=== PATIENT | female | born 1950 | race Caucasian/White ===

== ENCOUNTER → 2016-11-05 | Outpatient (CLI) | payer OTHER ==
[~2016-11-05] MED LIST: ASPI325T39 PO; ATEN-173 PO; CHOL100010 PO; FLNIN NAE; FLUT0.15 NAE; METFTAB PO; PRAV20TA PO; PRVC/40 PO
--- NOTE | 2016-11-05 15:32 | MAMMOGRAPHY REPORT ---
BILATERAL DIGITAL SCREENING MAMMOGRAM WITH CAD: 11/05/2016 CLINICAL HISTORY: Routine screening. TECHNIQUE: Current study was also evaluated with a Computer Aided Detection (CAD) system. Bilateral CC and MLO and left XCCL views were obtained. COMPARISON: Comparison is made to exams dated: 11/04/2015 mammogram, 10/30/2014 mammogram, 10/03/2013 m ammogram, 09/27/2012 mammogram, 09/22/2011 mammogram, and 09/16/2010 mammogram - [facility] enter. BREAST COMPOSITION: The tissue of both breasts is almost entirely fatty. FINDINGS: No suspicious masses, calcifications, or areas of architectural distortion are noted in ei ther breast. There has been no significant interval change compared to prior exams. IMPRESSION: ACR BI-RADS CATEGORY 1: NEGATIVE There is no mammographic evidence of malignancy. A 1 year screening mammogram is recommended. The pa tient will receive written notification of the results. Approximately 10% of breast cancers are not detected with mammography. A negative mammographic report should not delay biopsy if a clinically suggestive mass is present. Shirlene Cabral M.D. ah/:11/05/2016 07:48:50 Numerical Control Lathe Operator: Jaylon Jones RT(R)(M), [facility] letter sent: Normal 1/2 BI-RADS Code: ACR BI-RADS Category 1: Negative
== END | disposition home or self-care (01) ==
LOC: C.MAMM 07:28
PROVIDERS: ATTEND Family Medicine
DX: Z12.31 Encounter for screening mammogram for malignant neoplasm of breast (principal)

== ENCOUNTER 2016-11-27 15:55 | Emergency (ER) | payer OTHER ==
[~2016-11-27] VITALS: Ht 160 cm; Wt 112.0 kg
[~2016-11-27 15:55] MED LIST changes: -FLUT0.15 NAE; -PRVC/40 PO
[2016-11-27 16:00] VITALS: Ht 160 cm; Wt 112.0 kg
--- NOTE | 2016-11-27 16:20 | EMERGENCY ROOM VISIT NOTE ---
History Report prepared by Emmanuel: Victoriano Gross Under the Supervision of: Dr. Mayte Mckeon D.O. First contact with patient: 16:04 Chief Complaint: BACK PAIN Stated Complaint: LOWER RIGHT BACK PAIN History of Present Illness The patient is a 65 year old female who presents to the Emergency Room with complaints of waxing and waning sharp lower right back pain starting this morning. The patient states that this morning she woke up normally, and when she was getting dressed she got a sharp pain in her back. She states that she went to breakfast, and it subsided and became dull. Then after lunch she had this pain come back again. She states that she then went to [facility], and they told her to come to the ED for evaluation. The patient states that she has had back pain before, though this is unlike her normal back pain. She states that she is nauseous, and the pain is wrapping around to her stomach. She states that standing upright helps with the pain. She additionally states that she has had UTI's in the past, though she has not had any recently. Pt denies leg pain, headache, change in vision, cough, fevers, chills, numbness , tingling, leg swelling, chest pain, shortness of breath, vomiting, diarrhea, pain with urination, melena, and any recent travels. Source of History: patient Onset: this morning Position: back (lower right) Quality: sharp Timing: waxes/wanes Associated Symptoms: + nausea, + abdominal pain Review of Systems See HPI for pertinent positives & negatives. A total of 10 systems reviewed and were otherwise negative. Past Medical & Surgical Medical Problems: (1) Benign hypertension (2) Bilateral tubal ligation (3) Gastroesophageal reflux disease (4) TUBAL LIGATION STATUS Family History Heart disease Hypertension Social History Smoking Status: Former Smoker Alcohol Use: none Marital Status: Occupation Status: employed Current/Historical Medications Scheduled Aspirin (Aspirin Ec), 1 TAB PO DAILY Atenolol (Tenormin), 25 MG PO QPM Metformin Ext Rel (Glucophage Ext Rel), 1,000 MG PO QPM Pravastatin Sod (Pravastatin Sodium), 40 MG PO DAILY Scheduled PRN Fluticasone Propionate (Nasal) (Flonase Allergy Relief), 2 SPRAYS ABDOULAYE DAILY PRN for congestion Allergies Coded Allergies: Penicillins (Verified Allergy, Mild, LOW BP, 11/27/16) Sulfa Drugs (Verified Allergy, Mild, SWELLS UP, 11/27/16) Cefadroxil (Verified Adverse Reaction, Unknown, GI SYMPTOMS, 11/27/16) Cefdinir (Verified Adverse Reaction, Unknown, GI SYMPTOMS, 11/27/16) Physical Exam Vital Signs Date Time Temp Pulse Resp B/P (MAP) Pulse Ox O2 Delivery O2 Flow Rate FiO2 11/27/16 18:07 36.6 62 18 150/85 97 Room Air NIBP 11/27/16 16:11 60 20 203/74 97 Room Air 11/27/16 16:00 36.6 59 17 96 Room Air Physical Exam GENERAL: alert, well appearing, well nourished, no distress, non-toxic EYE EXAM: normal conjunctiva, PERRL and EOM's grossly intact OROPHARYNX: no exudate, no erythema, lips, buccal mucosa, and tongue normal and mucous membranes are moist NECK: supple, no nuchal rigidity, no adenopathy, non-tender LUNGS: Clear to auscultation. Normal chest wall mechanics HEART: no murmurs, S1 normal and S2 normal ABDOMEN: abdomen soft, non-tender, normo-active bowel sounds, no masses, no rebound or guarding. BACK: Back is symmetrical on inspection and there is no deformity, no midline tenderness, no CVA tenderness. SKIN: no rashes and no bruising UPPER EXTREMITIES: upper extremities are grossly normal. LOWER EXTREMITIES: No pitting edema. NEURO EXAM: Normal sensorium, cranial nerves II-XII grossly intact, normal speech, no gross weakness of arms, no gross weakness of legs. Gross sensation intact. Medical Decision & Procedures ER Provider Diagnostic Interpretation: Radiology results have been interpreted by the radiologist and reviewed by me. ABDOMEN AND PELVIS CT WITHOUT CONTRAST CT DOSE: 1639.04 mGy.cm HISTORY: right low back pain TECHNIQUE: Multiaxial CT images of the abdomen and pelvis were performed without the use of intravenous and oral contrast according to the standard department stone protocol. A dose lowering technique was utilized adhering to the principles of ALARA. COMPARISON STUDY: None. FINDINGS: The lung bases are clear. No fractures within the visualized osseous structures. Tiny hiatus hernia. Mild hepatic steatosis. The unenhanced gallbladder, spleen, adrenal glands, and pancreas are unremarkable. No retroperitoneal lymphadenopathy. A 7 mm fat-containing lesion within the left side of the uterine fundus. This favors a small lipoleiomyoma. Suboptimal evaluation for bowel pathology due to the lack of intravenous and oral contrast. However, there is no definite bowel wall thickening or obstruction. There are a few scattered colonic diverticula. Normal appendix. There are suggestion of a punctate bladder stone. No bladder wall thickening. No renal or ureteral stones. No hydronephrosis. A 4.3 cm hypodense lesion within the lower pole of the right kidney. This is technically indeterminate on this noncontrast study but likely represents a cyst. IMPRESSION: 1. No renal or ureteral stones. No hydronephrosis. 2. Suspect a punctate bladder stone. 3. Hepatic steatosis. 4. Moderate diverticulosis. 5. Additional findings as described above. Electronically signed by: Jeronimo Arroyo M.D. 11/27/2016 5:28 PM Dictated Date/Time: 11/27/2016 5:20 PM Laboratory Results 11/27/16 16:30 Red Blood Count 4.76, Mean Corpuscular Volume 91.0, Mean Corpuscular Hemoglobin 29.0, Mean Corpuscular Hemoglobin Concent 31.9, Mean Platelet Volume 11.2, Neutrophils (%) (Auto) 70.0, Lymphocytes (%) (Auto) 20.3, Monocytes (%) (Auto) 7.2, Eosinophils (%) (Auto) 1.9, Basophils (%) (Auto) 0.3, Neutrophils # (Auto) 6.87, Lymphocytes # (Auto) 2.00, Monocytes # (Auto) 0.71, Eosinophils # (Auto) 0.19, Basophils # (Auto) 0.03 11/27/16 16:30 Test 11/27/16 16:30 White Blood Count 9.83 K/uL (4.8-10.8) Red Blood Count 4.76 M/uL (4.2-5.4) Hemoglobin 13.8 g/dL (12.0-16.0) Hematocrit 43.3 % (37-47) Mean Corpuscular Volume 91.0 fL (80-100) Mean Corpuscular Hemoglobin 29.0 pg (25-34) Mean Corpuscular Hemoglobin Concent 31.9 g/dl (32-36) Platelet Count 184 K/uL (130-400) Mean Platelet Volume 11.2 fL (7.4-10.4) Neutrophils (%) (Auto) 70.0 % Lymphocytes (%) (Auto) 20.3 % Monocytes (%) (Auto) 7.2 % Eosinophils (%) (Auto) 1.9 % Basophils (%) (Auto) 0.3 % Neutrophils # (Auto) 6.87 K/uL (1.4-6.5) Lymphocytes # (Auto) 2.00 K/uL (1.2-3.4) Monocytes # (Auto) 0.71 K/uL (0.11-0.59) Eosinophils # (Auto) 0.19 K/uL (0-0.5) Basophils # (Auto) 0.03 K/uL (0-0.2) RDW Standard Deviation 43.2 fL (36.4-46.3) RDW Coefficient of Variation 13.1 % (11.5-14.5) Immature Granulocyte % (Auto) 0.3 % Immature Granulocyte # (Auto) 0.03 K/uL (0.00-0.02) Anion Gap 9.0 mmol/L (3-11) Est Creatinine Clear Calc Drug Dose 68.4 ml/min Estimated GFR () 70.9 Estimated GFR (Non- 61.2 BUN/Creatinine Ratio 17.7 (10-20) Calcium Level 9.5 mg/dl (8.5-10.1) Laboratory results per my review. ED Course 1608: The patient was evaluated in room C10. A complete history and physical exam was performed. 1743: Upon reevaluation, the patient is feeling better. I discussed the findings and the treatment plan with the patient. She verbalizes agreement and understanding. She was discharged home. Medical Decision Differential diagnosis: Etiologies such as renal colic, appendicitis, diverticulitis, mesenteric ischemia, aortic pathology, infections, inflammatory bowel disease, PUD, biliary pathology, UTI, as well as others were entertained. Patient well-appearing here despite complaints, symptoms improved with medication. Discussed all results with patient's. Discussed adamantly noted on uterus and advised close follow-up with TAX REPRESENTATIVE as well. Labs otherwise reassuring, no evidence of infection. No evidence of ureteral stone, however possible recently passed stone given bladder stone noted on CT. Discussed with patient hydration, medications, symptoms to watch and return for , follow-up with family doctor, she verbalized understanding was agreeable with plan. Medication Reconcilliation Current Medication List: was personally reviewed by me Blood Pressure Screening Patient's blood pressure: Elevated blood pressure Blood pressure disposition: Elevated BP felt to be situational Impression Primary Impression: Low back pain Scribe Attestation The scribe's documentation has been prepared under my direction and personally reviewed by me in its entirety. I confirm that the note above accurately reflects all work, treatment, procedures, and medical decision making performed by me. Departure Information Dispostion Home / Self-Care Referrals Sylvester Perez M.D. (PCP) Forms HOME CARE DOCUMENTATION FORM, IMPORTANT VISIT INFORMATION Patient Instructions My [facility] Additional Instructions Please watch for any recurrent/worsening symptoms. You may try tylenol/ ibuprofen as directed on the bottle. Please drink plenty of water. Please avoid heavy lifting/strenuous activity until you are feeling better. If you have any other new or concerning symptoms, have worsening pain, fever/chills, vomiting, diarrhea, or you have any other new concerns, please return to the emergency room. Problem Qualifiers Primary Impression: Low back pain Chronicity: acute Back pain laterality: right Sciatica presence: without sciatica Qualified Codes: M54.5 - Low back pain
[2016-11-27 16:45] LABS: BASO % 0.3 %; BASO ABS # 0.03 K/uL (0-0.2); COMPLETE YES; EOS % 1.9 %; HEMATOCRIT 43.3 % (37-47); IG% 0.3 %; LYMPH % 20.3 %; MEAN CORPUSCULAR HGB CONC 31.9 g/dl (32-36); MEAN PLATELET VOLUME 11.2 fL (7.4-10.4); MONO % 7.2 %; PLATELET COUNT 184 K/uL (130-400); RED BLOOD COUNT 4.76 M/uL (4.2-5.4); WHITE BLOOD COUNT 9.83 K/uL (4.8-10.8)
[2016-11-27 17:14] LABS: BUN/CREATININE RATIO 17.7 (10-20); CALCIUM 9.5 mg/dl (8.5-10.1); CREATININE 0.96 mg/dl (0.60-1.20)
[2016-11-27] MEDS ORDERED: PRVC/40 PO (17:24)
[2016-11-27] MEDS ORDERED: FLUT0.15 NAE (17:24)
--- NOTE | 2016-11-27 17:29 | DIAGNOSTIC IMAGING REPORT ---
ABDOMEN AND PELVIS CT WITHOUT CONTRAST CT DOSE: 1639.04 mGy.cm HISTORY: right low back pain TECHNIQUE: Multiaxial CT images of the abdomen and pelvis were performed without the use of intravenous and oral contrast according to the standard department stone protocol. A dose lowering technique was utilized adhering to the principles of ALARA. COMPARISON STUDY: None. FINDINGS: The lung bases are clear. No fractures within the visualized osseous structures. Tiny hiatus hernia. Mild hepatic steatosis. The unenhanced gallbladder, spleen, adrenal glands, and pancreas are unremarkable. No retroperitoneal lymphadenopathy. A 7 mm fat-containing lesion within the left side of the uterine fundus. This favors a small lipoleiomyoma. Suboptimal evaluation for bowel pathology due to the lack of intravenous and oral contrast. However, there is no definite bowel wall thickening or obstruction. There are a few scattered colonic diverticula. Normal appendix. There are suggestion of a punctate bladder stone. No bladder wall thickening. No renal or ureteral stones. No hydronephrosis. A 4.3 cm hypodense lesion within the lower pole of the right kidney. This is technically indeterminate on this noncontrast study but likely represents a cyst. IMPRESSION: 1. No renal or ureteral stones. No hydronephrosis. 2. Suspect a punctate bladder stone. 3. Hepatic steatosis. 4. Moderate diverticulosis. 5. Additional findings as described above. Electronically signed by: Jeronimo Arroyo M.D. 11/27/2016 5:28 PM Dictated Date/Time: 11/27/2016 5:20 PM
[2016-11-27 18:07] VITALS: BP 150/85; PULSE 62; TEMP 36.6; O2SAT 97
== END 2016-11-27 18:07 | disposition home or self-care (01) ==
LOC: C.EDB 15:57 → C.EDC 18:07
DX: M54.5 Low back pain (principal); I10 Essential (primary) hypertension; K21.9 Gastro-esophageal reflux disease without esophagitis; Z98.51 Tubal ligation status; Z79.82 Long term (current) use of aspirin; Z79.84 Long term (current) use of oral hypoglycemic drugs; Z79.899 Other long term (current) drug therapy; Z87.891 Personal history of nicotine dependence; Z88.0 Allergy status to penicillin; Z88.2 Allergy status to sulfonamides; Z88.8 Allergy status to other drugs, medicaments and biological substances; Z82.49 Family history of ischemic heart disease and other diseases of the circulatory system

== ENCOUNTER → 2016-12-06 | Outpatient (CLI) | payer OTHER ==
[~2016-12-06] MED LIST changes: -CHOL100010 PO; -FLNIN NAE; +FLUT0.15 NAE; -PRAV20TA PO; +PRVC/40 PO
[2016-12-06 10:12] LABS: BLOOD UREA NITROGEN 18 mg/dl (7-18); BUN/CREATININE RATIO 21.7 (10-20); CARBON DIOXIDE 27 mmol/L (21-32); CHLORIDE 103 mmol/L (98-107); CREATININE 0.84 mg/dl (0.60-1.20); GLUCOSE 144 mg/dl (70-99); POTASSIUM 4.4 mmol/L (3.5-5.1); SODIUM 138 mmol/L (136-145)
[2016-12-06 10:15] LABS: CHOLESTEROL 172 mg/dl (0-200); CHOLESTEROL/HDL RATIO 4.3; HDL CHOLESTEROL 40 mg/dl; LDL CHOLESTEROL CALCULATED 95 mg/dl; TRIGLYCERIDES 185 mg/dl (0-150); VERY LOW DENSITY LIPOPROT CALC 37 mg/dl
== END | disposition home or self-care (01) ==
LOC: C.LAB 07:35
PROVIDERS: ATTEND Family Medicine
DX: Z13.1 Encounter for screening for diabetes mellitus (principal); Z13.220 Encounter for screening for lipoid disorders

== ENCOUNTER → 2017-01-13 | Outpatient (CLI) | payer OTHER | END | disposition home or self-care (01) | LOC: C.PATHSPEC 17:34 | PROVIDERS: ATTEND Dentist Oral and Maxillofacial Surgery | DX: K04.8 Radicular cyst (principal) ==

== ENCOUNTER 2017-05-22 11:38 | Emergency (ER) | payer OTHER ==
[~2017-05-22] VITALS: Ht 160 cm; Wt 106.6 kg
[2017-05-22 11:42] VITALS: TEMP 36.7; Ht 160 cm; Wt 106.6 kg
--- NOTE | 2017-05-22 12:04 | EMERGENCY ROOM VISIT NOTE ---
History Report prepared by Cherryibabhijit: aLura Irizarry Under the Supervision of: Dr. Yuri Jones M.D. First contact with patient: 11:48 Chief Complaint: URINARY SYMPTOMS Stated Complaint: BLOOD IN URINE Nursing Triage Summary: pt reports she has blood in her urine suddenly started at 1100 today denies any pain does not feel sick. 6 months ago thought to have kidney stone, never found History of Present Illness The patient is a 66 year old white female with a past medical history of GERD, hypertension and hyperlipidemia who presents to the ED with a cc of persistent hematuria beginning at 1100 this morning. Negative nausea, vomiting, diarrhea, back pain, abdominal pain, dysuria, pain or swelling in the legs, recent injuries, falls or trauma. The patient reports she was recently diagnosed with bursitis of the hip and got an injection from [facility]. She notes about 6 months ago she was treated by her PCP's office for urinary symptoms and was told she may have a kidney stone and to come to the ED. She had a CT scan but states they were unable to find a stone and she never passed one. Source of History: patient Onset: 1100 this morning Position: pelvis (urinary system) Quality: other (hematuria) Timing: other (persistent) Associated Symptoms: No nausea, No vomiting, No abdominal pain, No back pain , No diarrhea Review of Systems See HPI for pertinent positives and negatives. A total of ten systems were reviewed and were otherwise negative. Past Medical & Surgical Medical Problems: (1) Benign hypertension (2) Bilateral tubal ligation (3) Gastroesophageal reflux disease (4) TUBAL LIGATION STATUS Family History Heart disease Hypertension Social History Smoking Status: Never Smoker Alcohol Use: none Drug Use: none Marital Status: Housing Status: lives with family Occupation Status: employed Current/Historical Medications Scheduled Aspirin (Aspirin Ec), 1 TAB PO DAILY Atenolol (Tenormin), 25 MG PO QPM Cephalexin (Keflex), 1 CAP PO BID Metformin Ext Rel (Glucophage Ext Rel), 1,000 MG PO QPM Pantoprazole (Protonix), 20 MG PO DIRECTED Pravastatin Sod (Pravastatin Sodium), 40 MG PO DAILY Scheduled PRN Fluticasone Propionate (Nasal) (Flonase Allergy Relief), 2 SPRAYS ABDOULAYE DAILY PRN for congestion Allergies Coded Allergies: Penicillins (Verified Allergy, Mild, LOW BP, 11/27/16) Sulfa Drugs (Verified Allergy, Mild, SWELLS UP, 11/27/16) Pneumococcal Vaccine (Unverified Adverse Reaction, Mild, GI SYMPTOMS, 05/22) Cefadroxil (Verified Adverse Reaction, Unknown, GI SYMPTOMS, 11/27/16) Cefdinir (Verified Adverse Reaction, Unknown, GI SYMPTOMS, 11/27/16) Physical Exam Vital Signs Date Time Temp Pulse Resp B/P (MAP) Pulse Ox O2 Delivery O2 Flow Rate FiO2 05/22/17 12:58 55 20 150/90 97 Room Air 05/22/17 11:42 36.7 68 18 251/94 94 Room Air Physical Exam GENERAL: Awake, alert, well-appearing, NAD HENT: Normocephalic, atraumatic. EYES: Normal conjunctiva. Sclera non-icteric. NECK: Supple. No nuchal rigidity. FROM. RESPIRATORY: CTAB, no rhonchi, wheezing, crackles CARDIAC: RRR, no MRG ABDOMEN: Soft, NTND, no suprapubic TTP, BS+ MSK: No chest wall TTP, no CVA TTP, no LE edema NEURO: GCS 15, CN 2-12 intact, moves all 4s on command SKIN: No rash or jaundice noted. Medical Decision & Procedures ER Provider Diagnostic Interpretation: Radiology results as stated below per my review and radiologist interpretation: ABD/PELVIS WITHOUT FOR STONE HISTORY: 66 years-old Female hematuria, prior h/o stones acute hematuria with history of kidney stones. COMPARISON: CT 11/27/2016 TECHNIQUE: Multiple axial CT images of the abdomen and pelvis were obtained without IV contrast. A dose lowering technique was used consistent with the principals of ALARA. FINDINGS: Respiratory motion limits evaluation of the lung bases. There is minimal subsegmental bibasilar atelectasis. No pneumatosis or pneumoperitoneum identified. Calcifications of the aortic annulus are noted. Imaged inferior cardiac chambers are otherwise unremarkable. Hepatic steatosis. Gallbladder is mildly contracted. The spleen, pancreas and adrenal glands are within normal limits. Cyst of the inferior pole right kidney measures 4.2 x 3.8 cm, unchanged. No renal calculi or obstructive uropathy. Air is mild wall thickening of the urinary bladder with perivesicular stranding. Punctate calcification at the base of the urinary bladder is unchanged. Fatty attenuating 7 mm lesion of the left uterine fundus redemonstrated suggesting a uterine lipoleiomyoma, unchanged. Adnexa are within normal limits. Aorta is normal in course and caliber with mild atherosclerosis. No aneurysm. No bulky adenopathy identified. Small sliding-type hiatal hernia. No bowel obstruction or focal bowel wall thickening. Moderate stool volume of the colon. Mild colonic diverticulosis without diverticulitis. The appendix appears noninflamed. Soft tissues are unremarkable. The bones appear intact. Facet arthropathy is noted within the lower lumbar spine. IMPRESSION: 1. No renal calculi or obstructive uropathy. 2. Mild wall thickening of the urinary bladder with perivesicular stranding. Correlate with urinalysis to exclude cystitis. Punctate calcification is again seen at the base of the urinary bladder suggesting a bladder calculus, unchanged from comparison study 11/27/2016. 3. Hepatic steatosis. 4. Additional findings as above. The above report was generated using voice recognition software. It may contain grammatical, syntax or spelling errors. Electronically signed by: Gilson Westfall M.D. 05/22/2017 12:47 PM Laboratory Results 05/22/17 12:22 Red Blood Count 4.89, Mean Corpuscular Volume 89.2, Mean Corpuscular Hemoglobin 29.7, Mean Corpuscular Hemoglobin Concent 33.3, Mean Platelet Volume 11.3, Neutrophils (%) (Auto) 75.4, Lymphocytes (%) (Auto) 16.2, Monocytes (%) (Auto) 6.8, Eosinophils (%) (Auto) 1.2, Basophils (%) (Auto) 0.2, Neutrophils # (Auto) 7.37, Lymphocytes # (Auto) 1.58, Monocytes # (Auto) 0.66, Eosinophils # (Auto) 0.12, Basophils # (Auto) 0.02 05/22/17 12:40 Test 05/22/17 12:05 05/22/17 12:22 05/22/17 12:40 Urine Color RED Urine Appearance CLOUDY (CLEAR) Urine pH 6.5 (4.5-7.5) Urine Specific [place] 1.014 (1.000-1.030) Urine Protein NEG (NEG) Urine Glucose (UA) NEG (NEG) Urine Ketones NEG (NEG) Urine Occult Blood 3+ (NEG) Urine Nitrite NEG (NEG) Urine Bilirubin NEG (NEG) Urine Urobilinogen NEG (NEG) Urine Leukocyte Esterase SMALL (NEG) Urine WBC (Auto) 10-30 /hpf (0-5) Urine RBC (Auto) >30 /hpf (0-4) Urine Hyaline Casts (Auto) 1-5 /lpf (0-5) Urine Epithelial Cells (Auto) 5-10 /lpf (0-5) Urine Bacteria (Auto) 1+ (NEG) White Blood Count 9.77 K/uL (4.8-10.8) Red Blood Count 4.89 M/uL (4.2-5.4) Hemoglobin 14.5 g/dL (12.0-16.0) Hematocrit 43.6 % (37-47) Mean Corpuscular Volume 89.2 fL (80-100) Mean Corpuscular Hemoglobin 29.7 pg (25-34) Mean Corpuscular Hemoglobin Concent 33.3 g/dl (32-36) Platelet Count 162 K/uL (130-400) Mean Platelet Volume 11.3 fL (7.4-10.4) Neutrophils (%) (Auto) 75.4 % Lymphocytes (%) (Auto) 16.2 % Monocytes (%) (Auto) 6.8 % Eosinophils (%) (Auto) 1.2 % Basophils (%) (Auto) 0.2 % Neutrophils # (Auto) 7.37 K/uL (1.4-6.5) Lymphocytes # (Auto) 1.58 K/uL (1.2-3.4) Monocytes # (Auto) 0.66 K/uL (0.11-0.59) Eosinophils # (Auto) 0.12 K/uL (0-0.5) Basophils # (Auto) 0.02 K/uL (0-0.2) RDW Standard Deviation 42.2 fL (36.4-46.3) RDW Coefficient of Variation 12.9 % (11.5-14.5) Immature Granulocyte % (Auto) 0.2 % Immature Granulocyte # (Auto) 0.02 K/uL (0.00-0.02) Prothrombin Time 10.7 SECONDS (9.0-12.0) Prothromb Time International Ratio 1.0 (0.9-1.1) Activated Partial Thromboplast Time 27.1 SECONDS (21.0-31.0) Partial Thromboplastin Ratio 1.0 Anion Gap 8.0 mmol/L (3-11) Est Creatinine Clear Calc Drug Dose 75.9 ml/min Estimated GFR () 84.0 Estimated GFR (Non- 72.5 BUN/Creatinine Ratio 22.0 (10-20) Calcium Level 9.0 mg/dl (8.5-10.1) Total Bilirubin 0.6 mg/dl (0.2-1) Direct Bilirubin 0.2 mg/dl (0-0.2) Aspartate Amino Transf (AST/SGOT) 16 U/L (15-37) Alanine Aminotransferase (ALT/SGPT) 25 U/L (12-78) Alkaline Phosphatase 103 U/L (45-117) Total Protein 6.7 gm/dl (6.4-8.2) Albumin 3.5 gm/dl (3.4-5.0) Laboratory results reviewed by me Medications Administered Medications (Trade) Dose Ordered Sig/Alcira Route Start Time Stop Time Status Last Admin Dose Admin Cephalexin Monohydrate (Keflex Cap) 500 mg NOW ONCE PO 05/22/17 13:00 05/22/17 13:01 DC 05/22/17 14:23 500 MG ED Course 1157: The patient was evaluated in room A11. A complete history and physical exam was performed. 1315: I reevaluated the patient. She is resting comfortably. 1350: I reevaluated the patient. She is feeling well and resting comfortably. I discussed her results and discharge instructions and she verbalized complete understanding and agreement. Medical Decision The patient is a 66 year old white female with a past medical history of GERD, hypertension and hyperlipidemia who presents to the ED with a cc of persistent hematuria beginning at 1100 this morning. Triage Nursing notes reviewed. The patient's presentation and history were concerning for kidney stone. Differential diagnosis: Etiologies such as renal colic, appendicitis, diverticulitis, mesenteric ischemia, aortic pathology, infections, inflammatory bowel disease, PUD, biliary pathology, UTI, as well as others were entertained. Prior records were reviewed. Patient was seen months ago and did have a CT Noncon which did show a punctate bladder calculi. Patient had had some hematuria at that time. Patient was seen and evaluated the bedside. Patient noted that she had 2 episodes of painless hematuria. Patient has not taken any recent aspirin, Motrin, or other blood thinning medications. Patient denies any trauma. Patient denies any flank or back pain. Patient denies any recent strains or sprains. On exam she has a benign exam. Patient does note notably have an elevated blood pressure however the patient is otherwise asymptomatic. She has no focal neurologic deficits. Patient had blood work completed along with coagulation studies, and his CT Noncon. Patient still has a persistent bladder calculi. The patient does have some mild bladder wall thickening. Given this and the positive bacteria we will treat for possible hemorrhagic cystitis. Patient was informed of these findings. Patient was deemed suitable for outpatient follow-up and treatment at this time. Patient was told that if she has persistent symptoms she should get a referral from her PCP in order to see a urologist. Patient was given strict follow-up, discharge, and return precautions. All questions were answered. Patient was deemed suitable for outpatient follow-up at this time. Patient agreed with the plan of care and was safely discharged home. Medication Reconcilliation Current Medication List: was personally reviewed by me Blood Pressure Screening Patient's blood pressure: Elevated blood pressure Blood pressure disposition: Referred to PCP Impression Primary Impression: Urinary tract infection Additional Impression: Painless hematuria Scribe Attestation The scribe's documentation has been prepared under my direction and personally reviewed by me in its entirety. I confirm that the note above accurately reflects all work, treatment, procedures, and medical decision making performed by me. Departure Information Dispostion Home / Self-Care Prescriptions Cephalexin (KEFLEX) 500 Mg Cap 1 CAP PO BID for 7 Days, #13 CAP Prov: Yuri Jones M.D. 05/22/17 Referrals Sylvester Perez M.D. (PCP) Patient Instructions ED Hematuria, ED UTI Cystitis Female, Hematuria Poss Causes, My [facility] Additional Instructions Please return to the emergency department if you have worsening or recurrent symptoms not amenable to at-home treatment. Please call for a follow-up appointment with her primary care physician. Please take your medications as prescribed. If you have other concerns and/or complaints please feel free to also call your primary care physician's office or return the ED for further evaluation, management, and treatment. You were found to have an elevated blood pressure today (>120 sytolic or >90 diastolic). Per medicare guidelines, you need to follow up with this blood pressure screening with your Primary Care Physician (PCP). For a new PCP call [phone]. Please follow-up with your PCP for further blood pressure management. Please also make an appointment in order to obtain a referral to a urologist if you have persistent blood in your urine. You may take tylenol 650 mg every 6 hours as needed for pain. Take your medications as prescribed. If taking an antibiotic consider taking a probiotic and/or eating yogurt, but at the least, please take with food as it can cause upset stomach. You have been examined and treated today on an emergency basis only. This is not a substitute for, or an effort to provide, complete comprehensive medical care. It is impossible to recognize and treat all injuries or illnesses in a single emergency department visit. It is therefore important that you follow up closely with [facility], your PCP, and/or your specialist(s). Call as soon as possible for an appointment. Thank you for your time and consideration. I look forward to speaking with you again soon. Please don't hesitate to call us if you have any questions. Problem Qualifiers Primary Impression: Urinary tract infection Urinary tract infection type: acute cystitis Hematuria presence: with hematuria Qualified Codes: N30.01 - Acute cystitis with hematuria
[2017-05-22 12:37] LABS: BASO % 0.2 %; BASO ABS # 0.02 K/uL (0-0.2); EOS % 1.2 %; EOS ABS # 0.12 K/uL (0-0.5); HEMATOCRIT 43.6 % (37-47); HEMOGLOBIN 14.5 g/dL (12.0-16.0); IG# 0.02 K/uL (0.00-0.02); LYMPH % 16.2 %; LYMPH ABS # 1.58 K/uL (1.2-3.4); MEAN CELL VOLUME 89.2 fL (80-100); MEAN CORPUSCULAR HEMOGLOBIN 29.7 pg (25-34); MEAN CORPUSCULAR HGB CONC 33.3 g/dl (32-36); MEAN PLATELET VOLUME 11.3 fL (7.4-10.4); MONO % 6.8 %; MONO ABS # 0.66 K/uL (0.11-0.59); NEUT % 75.4 %; NEUT ABS # 7.37 K/uL (1.4-6.5); PLATELET COUNT 162 K/uL (130-400); RED CELL DISTRIBUTION WIDTH CV 12.9 % (11.5-14.5); RED CELL DISTRIBUTION WIDTH SD 42.2 fL (36.4-46.3); WHITE BLOOD COUNT 9.77 K/uL (4.8-10.8)
--- NOTE | 2017-05-22 12:49 | DIAGNOSTIC IMAGING REPORT ---
ABD/PELVIS WITHOUT FOR STONE HISTORY: 66 years-old Female hematuria, prior h/o stones acute hematuria with history of kidney stones. COMPARISON: CT 11/27/2016 TECHNIQUE: Multiple axial CT images of the abdomen and pelvis were obtained without IV contrast. A dose lowering technique was used consistent with the principals of LEIDA. FINDINGS: Respiratory motion limits evaluation of the lung bases. There is minimal subsegmental bibasilar atelectasis. No pneumatosis or pneumoperitoneum identified. Calcifications of the aortic annulus are noted. Imaged inferior cardiac chambers are otherwise unremarkable. Hepatic steatosis. Gallbladder is mildly contracted. The spleen, pancreas and adrenal glands are within normal limits. Cyst of the inferior pole right kidney measures 4.2 x 3.8 cm, unchanged. No renal calculi or obstructive uropathy. Air is mild wall thickening of the urinary bladder with perivesicular stranding. Punctate calcification at the base of the urinary bladder is unchanged. Fatty attenuating 7 mm lesion of the left uterine fundus redemonstrated suggesting a uterine lipoleiomyoma, unchanged. Adnexa are within normal limits. Aorta is normal in course and caliber with mild atherosclerosis. No aneurysm. No bulky adenopathy identified. Small sliding-type hiatal hernia. No bowel obstruction or focal bowel wall thickening. Moderate stool volume of the colon. Mild colonic diverticulosis without diverticulitis. The appendix appears noninflamed. Soft tissues are unremarkable. The bones appear intact. Facet arthropathy is noted within the lower lumbar spine. IMPRESSION: 1. No renal calculi or obstructive uropathy. 2. Mild wall thickening of the urinary bladder with perivesicular stranding. Correlate with urinalysis to exclude cystitis. Punctate calcification is again seen at the base of the urinary bladder suggesting a bladder calculus, unchanged from comparison study 11/27/2016. 3. Hepatic steatosis. 4. Additional findings as above. The above report was generated using voice recognition software. It may contain grammatical, syntax or spelling errors. Electronically signed by: Gilson Westfall M.D. 05/22/2017 12:47 PM Dictated Date/Time: 05/22/2017 12:38 PM
[2017-05-22 12:50] LABS: PTT PATIENT 27.1 SECONDS (21.0-31.0)
[2017-05-22 12:58] VITALS: BP 150/90
[2017-05-22] MEDS ORDERED: CEPHALEXIN MONOHYDRATE 250 MG CAP PO ONE (13:00)
[2017-05-22 13:04] LABS: ALBUMIN 3.5 gm/dl (3.4-5.0); CREATININE 0.83 mg/dl (0.60-1.20); POTASSIUM 3.9 mmol/L (3.5-5.1)
[2017-05-22 13:07] LABS: TOTAL PROTEIN 6.7 gm/dl (6.4-8.2)
[2017-05-22] MEDS ORDERED: PRT/20 PO (13:41)
[2017-05-22 14:28] VITALS: PULSE 62; O2SAT 97
[2017-05-22] MEDS ORDERED: CEPH-571 PO (14:29)
--- NOTE | 2017-05-24 12:58 | Pharmacy Progress Note ---
ED Pharmacist Culture FollowUp Date of Service: May 24, 2017. Patient was sent home with a prescription for cephalexin, which should cover the E. coli growing from the patient's urine culture.
== END 2017-05-22 14:29 | disposition home or self-care (01) ==
LOC: C.EDB 11:39 → C.EDA 14:29
DX: N39.0 Urinary tract infection, site not specified (principal); N32.89 Other specified disorders of bladder; I10 Essential (primary) hypertension; Z79.82 Long term (current) use of aspirin; Z79.84 Long term (current) use of oral hypoglycemic drugs; Z88.0 Allergy status to penicillin; Z88.2 Allergy status to sulfonamides; Z88.7 Allergy status to serum and vaccine; Z88.1 Allergy status to other antibiotic agents; Z82.49 Family history of ischemic heart disease and other diseases of the circulatory system